=== PATIENT | female | born 1955 | race Caucasian/White ===

== ENCOUNTER 2019-07-05 18:40 | Emergency (ER) | payer OTHER ==
[~2019-07-05] VITALS: Ht 154.9 cm; Wt 113.6 kg
[~2019-07-05 18:40] MED LIST: DSS100 PO; OMEP-50
[2019-07-05] MEDS ORDERED: SIMV-43 PO (19:39)
[2019-07-05] MEDS ORDERED: LISI-622 PO (19:39)
[2019-07-05] MEDS ORDERED: METF-960 PO (19:39)
[2019-07-05] MEDS ORDERED: GABA-531 PO (19:39)
[2019-07-05 19:42] LABS: GLUCOSE,POINT OF CARE 141 MG/DL (70-110)
[2019-07-05 21:09] LABS: BASOPHILS % (AUTO) 0.6 % (0.0-2.0); EOSINOPHILS % (AUTO) 2.1 % (1.0-6.0); HEMATOCRIT 37.7 % (36-46); HEMOGLOBIN 12.1 g/dL (12.0-16.0); LYMPHOCYTES # (AUTO) 2.4 K/uL (1.0-4.8); LYMPHOCYTES % (AUTO) 21.9 % (22.0-44.0); MEAN CORPUSCULAR HEMOGLOBIN 28.4 pg (26.0-34.0); MEAN CORPUSCULAR HGB CONC 32.1 G/dL (31.0-37.0); MEAN CORPUSCULAR VOLUME 89 fL (80-100); NEUTROPHILS # (AUTO) 7.4 K/uL (1.8-7.7); NEUTROPHILS % (AUTO) 66.4 % (40.0-70.0); PLATELET COUNT (AUTO) 271 K/uL (150-450); RED BLOOD CELL COUNT(AUTO) 4.26 MIL/uL (4.00-5.20); RED CELL DISTRIBUTION WIDTH 15.8 % (11.5-14.5)
[2019-07-05] MEDS ORDERED: KETOROLAC TROMETHAMINE 10 MG TABLET PO ONE (21:15)
[2019-07-05 21:36] LABS: LACTIC ACID 0.9 mmol/L (0.4-2.0)
[2019-07-05 21:47] LABS: PROTHROMBIN TIME 9.8 SEC (9.4-11.6)
[2019-07-05 21:53] LABS: APPEARANCE,URINE CLOUDY (CLEAR); GLUCOSE, URINE (UA) NEGATIVE (NEGATIVE); KETONES,URINE NEGATIVE (NEGATIVE); LEUKOCYTE ESTERASE ,URINE SMALL (NEGATIVE); NITRATE,URINE POSITIVE (NEGATIVE); OCCULT BLOOD,URINE NEGATIVE (NEGATIVE); PROTEIN,URINE TRACE (NEGATIVE)
[2019-07-05 21:56] LABS: BILIRUBIN,URINE PRELIM. POSITIVE (NEGATIVE)
[2019-07-05 22:02] LABS: BACTERIA,URINE Many /HPF (None Seen)
[2019-07-05 22:03] LABS: RBC,URINE None Seen /HPF (0-2); SQUAMOUS EPITHELIAL CELL,UR Few /LPF (None Seen)
[2019-07-05 22:08] LABS: CALCIUM, TOTAL 9.1 mg/dL (8.8-10.5); CREATININE 1.45 mg/dL (0.60-1.30); POTASSIUM 3.7 mmol/L (3.5-5.1)
[2019-07-05] MEDS ORDERED: CefTRIAXone 1 GM/DEXTROSE 50 ML IV ONE (22:15)
[2019-07-05 22:32] LABS: ALBUMIN 3.3 g/dL (3.4-5.0); BILIRUBIN,TOTAL 0.2 mg/dL (0.1-1.0); TOTAL PROTEIN, SERUM 8.5 g/dL (6.4-8.2)
[2019-07-05 22:46] LABS: INFLUENZA TYPE A NEGATIVE FOR TYPE A (NEGATIVE); INFLUENZA TYPE B NEGATIVE FOR TYPE B (NEGATIVE)
[2019-07-06 00:17] VITALS: BP 137/84
== END 2019-07-06 00:27 | disposition home or self-care (01) ==
LOC: EMS 18:41
DX: N39.0 Urinary tract infection, site not specified (principal); K57.92 Diverticulitis of intestine, part unspecified, without perforation or abscess without bleeding; R05 Cough; E11.9 Type 2 diabetes mellitus without complications; E78.00 Pure hypercholesterolemia, unspecified; I10 Essential (primary) hypertension; Z90.49 Acquired absence of other specified parts of digestive tract; Z79.899 Other long term (current) drug therapy
CPT/HCPCS: 36415; 71045; 74176; 80053; 81001; 82550; 82962; 83605; 83690; 83880; 84484; 85025; 85610; 85730; 87040; 87077; 87086; 87804; 93005; 96374; 99285; J0696

== ENCOUNTER 2022-07-03 18:21 | Inpatient (IN) | payer MEDICARE, OTHER ==
[~2022-07-03] VITALS: Ht 170.2 cm; Wt 131.8 kg
[~2022-07-03 18:21] MED LIST changes: -DSS100 PO; +GABA-531 PO; +LISI5TAB21 PO; +METF-1211 PO; -OMEP-50; +SIMV-43 PO
[2022-07-03] MEDS ORDERED: CefTRIAXone 1 GM/DEXTROSE 50 ML IV ONE (18:45)
[2022-07-03] MEDS ORDERED: 0.9% SODIUM CHLORIDE 10 ML SYRINGE IVP PRN (18:45)
[2022-07-03] MEDS ORDERED: ACETAMINOPHEN 500 MG TABLET PO ONE (18:45)
[2022-07-03] MEDS ORDERED: SODIUM CHLORIDE 0.9% 2,400 ML IV ONE (18:45)
[2022-07-03 19:13] LABS: BASOPHILS % (AUTO) 0.3 % (0.0-2.0); EOSINOPHILS % (AUTO) 1.2 % (1.0-6.0); HEMATOCRIT 35.3 % (36-46); HEMOGLOBIN 11.2 g/dL (12.0-16.0); LYMPHOCYTES % (AUTO) 7.5 % (22.0-44.0); MEAN CORPUSCULAR HEMOGLOBIN 28.1 pg (26.0-34.0); MEAN CORPUSCULAR HGB CONC 31.6 G/dL (31.0-37.0); MEAN CORPUSCULAR VOLUME 89 fL (80-100); MONOCYTES # (AUTO) 0.6 K/uL (0.1-1.0); MONOCYTES % (AUTO) 4.5 % (2.0-9.0); NEUTROPHILS # (AUTO) 11.6 K/uL (1.8-7.7); NEUTROPHILS % (AUTO) 86.5 % (40.0-70.0); PLATELET COUNT (AUTO) 303 K/uL (150-450); RED BLOOD CELL COUNT(AUTO) 3.97 MIL/uL (4.00-5.20)
[2022-07-03 19:22] LABS: ANION GAP 4 mmol/L (8-16); CALCIUM, TOTAL 9.4 mg/dL (8.8-10.5); CARBON DIOXIDE 32 mmol/L (22-29); CHLORIDE 96 mmol/L (98-107); CREATININE 1.11 mg/dL (0.60-1.30); GLOMERULAR FILTR. RATE CALC 49 mL/min (>60); GLUCOSE,RANDOM 124 mg/dL (70-110); SODIUM SERUM 132 mmol/L (136-145); UREA NITROGEN, BLOOD 17 mg/dL (7-18)
[2022-07-03 19:28] LABS: ALANINE AMINOTRANSFERASE 27 U/L (12-78); ALBUMIN 3.1 g/dL (3.4-5.0); ALKALINE PHOSPHATASE 82 U/L (46-116); ASPARTATE AMINOTRANSFERASE 26 U/L (15-37); BILIRUBIN,TOTAL 0.4 mg/dL (0.1-1.0); TOTAL PROTEIN, SERUM 7.8 g/dL (6.4-8.2)
[2022-07-03 19:31] LABS: LACTIC ACID 2.2 mmol/L (0.4-2.0)
[2022-07-03 19:34] LABS: B-TYPE NATRIURETIC PEPTIDE 21 pg/mL (0-100)
[2022-07-03 19:35] LABS: COVID AG,FIA SOURCE NASAL SWAB
[2022-07-03 19:53] LABS: INFLUENZA TYPE A NEGATIVE FOR TYPE A (NEGATIVE); INFLUENZA TYPE B NEGATIVE FOR TYPE B (NEGATIVE)
[2022-07-03 22:05] LABS: APPEARANCE,URINE CLEAR (CLEAR); BILIRUBIN,URINE NEGATIVE (NEGATIVE); GLUCOSE, URINE (UA) NEGATIVE (NEGATIVE); KETONES,URINE NEGATIVE (NEGATIVE); LEUKOCYTE ESTERASE ,URINE TRACE (NEGATIVE); NITRATE,URINE NEGATIVE (NEGATIVE); OCCULT BLOOD,URINE NEGATIVE (NEGATIVE); PH,URINE 5.5 (5.0-8.0); PROTEIN,URINE NEGATIVE (NEGATIVE); SPECIFIC GRAVITIY, URINE 1.004 (1.003-1.030); UROBILINOGEN,URINE <=1.0 mg/dL (<=1.0)
[2022-07-03 22:17] LABS: BACTERIA,URINE None Seen /HPF (None Seen); RBC,URINE None Seen /HPF (0-2); SQUAMOUS EPITHELIAL CELL,UR Rare /LPF (None Seen); WBC,URINE 0-2 /HPF (0-5)
[2022-07-03] MEDS ORDERED: MAGNESIUM HYDROXIDE SUSPENSION 30 ML UDCUP PO PRN (22:30)
[2022-07-03] MEDS ORDERED: MORPHINE SULFATE 2 MG/ML SYRINGE IVP PRN (22:30)
[2022-07-03] MEDS ORDERED: ONDANSETRON HCL 4 MG/2 ML VIAL IVP PRN (22:30)
[2022-07-03] MEDS ORDERED: HYDROCODONE/ACETAMINOPHEN 5-325 MG TABLET PO PRN (22:30)
[2022-07-03] MEDS ORDERED: ACETAMINOPHEN 325 MG TABLET PO PRN (22:30)
[2022-07-03] MEDS ORDERED: *CLINICAL-LEVOFLOXACIN IVPB DOSING CLINICAL ONE (22:30)
[2022-07-03] MEDS ORDERED: BISACODYL 10 MG RECTAL RECTAL SUPPOSITORY PR PRN (22:30)
[2022-07-03] MEDS ORDERED: DEXTROSE 50%-WATER 25 GM/50 ML SYRINGE IVP PRN (22:45)
[2022-07-03] MEDS ORDERED: SODIUM CHLORIDE 0.9% 1,000 ML IV ONE (22:45)
[2022-07-03] MEDS ORDERED: INSULIN LISPRO 100 UNITS/ML SQ PRN (22:45)
[2022-07-04] MEDS: LEVOFLOXACIN 750 MG/D5% WATER 150 ML IV SCH (00:07)
[2022-07-04] MEDS: HEPARIN SODIUM,PORCINE 5,000 UNITS/ML VIAL SQ SCH ×4 (00:17→23:44)
[2022-07-04] MEDS: SIMVASTATIN 20 MG TABLET PO SCH (08:38)
[2022-07-04] MEDS: PANTOPRAZOLE SODIUM 40 MG DR TABLET PO SCH (08:38)
[2022-07-04] MEDS: DOCUSATE SODIUM 100 MG CAPSULE PO SCH ×2 (08:39→20:38)
[2022-07-04 12:37] LABS: ALANINE AMINOTRANSFERASE 23 U/L (12-78); ALBUMIN 2.6 g/dL (3.4-5.0); ALKALINE PHOSPHATASE 62 U/L (46-116); ANION GAP 3 mmol/L (8-16); ASPARTATE AMINOTRANSFERASE 22 U/L (15-37); BILIRUBIN,TOTAL 0.2 mg/dL (0.1-1.0); CALCIUM, TOTAL 8.9 mg/dL (8.8-10.5); CARBON DIOXIDE 33 mmol/L (22-29); CHLORIDE 103 mmol/L (98-107); CREATININE 0.83 mg/dL (0.60-1.30); GLUCOSE,RANDOM 110 mg/dL (70-110); SODIUM SERUM 139 mmol/L (136-145); TOTAL PROTEIN, SERUM 7.1 g/dL (6.4-8.2); UREA NITROGEN, BLOOD 12 mg/dL (7-18)
[2022-07-04 12:38] LABS: GLOMERULAR FILTR. RATE CALC > 60 mL/min (>60)
[2022-07-04 15:12] LABS: ANION GAP 5 mmol/L (8-16); CALCIUM, TOTAL 9.2 mg/dL (8.8-10.5); CARBON DIOXIDE 31 mmol/L (22-29); CHLORIDE 103 mmol/L (98-107); GLUCOSE,RANDOM 106 mg/dL (70-110); SODIUM SERUM 139 mmol/L (136-145); UREA NITROGEN, BLOOD 11 mg/dL (7-18)
[2022-07-04 15:14] LABS: GLOMERULAR FILTR. RATE CALC > 60 mL/min (>60)
[2022-07-04 16:13] VITALS: BP 117/67
[2022-07-04] MEDS ORDERED: NYSTATIN 15 GM POWDER BOTTLE TP PRN (17:00)
[2022-07-04 19:40] VITALS: BP 112/68
[2022-07-04 20:05] LABS: GLUCOMETER DEV NAME(LOC) 5S.1B; GLUCOSE,POINT OF CARE 95 MG/DL (70-110)
[2022-07-05 00:15] VITALS: BP 114/71
[2022-07-05] MEDS: ZOLPIDEM TARTRATE 5 MG TABLET PO PRN ×2 (00:22→22:59)
[2022-07-05] MEDS ORDERED: SODIUM CHLORIDE 0.9% 500 ML IV ONE (01:07)
[2022-07-05] MEDS: LEVOFLOXACIN 750 MG/D5% WATER 150 ML IV SCH ×2 (01:09→22:59)
[2022-07-05 04:30] VITALS: BP 103/62
[2022-07-05 07:52] VITALS: BP 119/73
[2022-07-05] MEDS: HEPARIN SODIUM,PORCINE 5,000 UNITS/ML VIAL SQ SCH ×3 (08:18→23:02)
[2022-07-05] MEDS: PANTOPRAZOLE SODIUM 40 MG DR TABLET PO SCH (08:18)
[2022-07-05] MEDS: SIMVASTATIN 20 MG TABLET PO SCH (08:18)
[2022-07-05] MEDS: DOCUSATE SODIUM 100 MG CAPSULE PO SCH ×2 (09:00→21:01)
[2022-07-05 11:40] VITALS: BP 131/67
[2022-07-05 15:33] VITALS: BP 104/61
[2022-07-05 15:44] LABS: ANION GAP 4 mmol/L (8-16); CALCIUM, TOTAL 9.6 mg/dL (8.8-10.5); CARBON DIOXIDE 32 mmol/L (22-29); CHLORIDE 100 mmol/L (98-107); CREATININE 0.92 mg/dL (0.60-1.30); GLUCOSE,RANDOM 117 mg/dL (70-110); SODIUM SERUM 136 mmol/L (136-145); UREA NITROGEN, BLOOD 10 mg/dL (7-18)
[2022-07-05 15:45] LABS: GLOMERULAR FILTR. RATE CALC > 60 mL/min (>60)
[2022-07-05 19:24] VITALS: BP 123/61
[2022-07-05] MEDS: GABAPENTIN 300 MG CAPSULE PO SCH (21:00)
[2022-07-06 00:20] VITALS: BP 130/76
[2022-07-06 05:09] VITALS: BP 142/76
[2022-07-06 07:05] LABS: CALCIUM, TOTAL 9.4 mg/dL (8.8-10.5); CREATININE 1.04 mg/dL (0.60-1.30)
[2022-07-06 07:40] VITALS: BP 115/66
[2022-07-06] MEDS: HEPARIN SODIUM,PORCINE 5,000 UNITS/ML VIAL SQ SCH (08:25)
[2022-07-06] MEDS: DOCUSATE SODIUM 100 MG CAPSULE PO SCH (08:25)
[2022-07-06] MEDS: GABAPENTIN 300 MG CAPSULE PO SCH (08:25)
[2022-07-06] MEDS: SIMVASTATIN 20 MG TABLET PO SCH (08:25)
[2022-07-06] MEDS: PANTOPRAZOLE SODIUM 40 MG DR TABLET PO SCH (08:25)
[2022-07-06 11:40] VITALS: BP 112/59
[2022-07-06] MEDS ORDERED: LEVOFLOXACIN 500 MG TABLET PO SCH (12:00)
[2022-07-06 12:01] LABS: BASOPHILS % (AUTO) 0.9 % (0.0-2.0); EOSINOPHILS % (AUTO) 3.1 % (1.0-6.0); HEMATOCRIT 33.9 % (36-46); HEMOGLOBIN 10.7 g/dL (12.0-16.0); LYMPHOCYTES # (AUTO) 1.9 K/uL (1.0-4.8); LYMPHOCYTES % (AUTO) 27.7 % (22.0-44.0); MEAN CORPUSCULAR HEMOGLOBIN 28.6 pg (26.0-34.0); MEAN CORPUSCULAR HGB CONC 31.5 G/dL (31.0-37.0); MEAN CORPUSCULAR VOLUME 91 fL (80-100); MONOCYTES # (AUTO) 0.7 K/uL (0.1-1.0); MONOCYTES % (AUTO) 10.2 % (2.0-9.0); NEUTROPHILS # (AUTO) 3.9 K/uL (1.8-7.7); NEUTROPHILS % (AUTO) 58.1 % (40.0-70.0); PLATELET COUNT (AUTO) 283 K/uL (150-450); RED BLOOD CELL COUNT(AUTO) 3.74 MIL/uL (4.00-5.20); RED CELL DISTRIBUTION WIDTH 17.1 % (11.5-14.5)
[2022-07-06 12:47] LABS: GLUCOMETER DEV NAME(LOC) 5S.1B; GLUCOSE,POINT OF CARE 145 MG/DL (70-110)
[2022-07-06 12:47] LABS: GLUCOMETER DEV NAME(LOC) 5S.1B; GLUCOSE,POINT OF CARE 114 MG/DL (70-110)
[2022-07-06 12:47] LABS: GLUCOMETER DEV NAME(LOC) 5S.1B; GLUCOSE,POINT OF CARE 114 MG/DL (70-110)
[2022-07-06 12:47] LABS: GLUCOMETER DEV NAME(LOC) 5S.1B; GLUCOSE,POINT OF CARE 114 MG/DL (70-110)
[2022-07-06 13:21] LABS: GLUCOMETER DEV NAME(LOC) 5N.1C; GLUCOSE,POINT OF CARE 131 MG/DL (70-110)
[2022-07-06 13:22] LABS: GLUCOMETER DEV NAME(LOC) 5N.1C; GLUCOSE,POINT OF CARE 110 MG/DL (70-110)
== END 2022-07-06 16:35 | DRG 871 ==
LOC: EMS 18:28 → 5S 07-04 13:21
PROVIDERS: ADMIT Internal Medicine; ATTEND Internal Medicine
DX: A41.9 Sepsis, unspecified organism (principal); R53.2 Functional quadriplegia; E44.0 Moderate protein-calorie malnutrition; Z68.42 Body mass index [BMI] 45.0-49.9, adult; E66.01 Morbid (severe) obesity due to excess calories; K21.9 Gastro-esophageal reflux disease without esophagitis; I10 Essential (primary) hypertension; E11.9 Type 2 diabetes mellitus without complications; E78.5 Hyperlipidemia, unspecified; E78.00 Pure hypercholesterolemia, unspecified; I44.7 Left bundle-branch block, unspecified; Z20.822 Contact with and (suspected) exposure to COVID-19; G89.29 Other chronic pain; K42.9 Umbilical hernia without obstruction or gangrene; Z74.01 Bed confinement status; Z88.8 Allergy status to other drugs, medicaments and biological substances; Z79.899 Other long term (current) drug therapy; Z87.442 Personal history of urinary calculi; Z90.49 Acquired absence of other specified parts of digestive tract
CPT/HCPCS: 71045; 74176; 80048; 80053; 81001; 82962; 83605; 83880; 84484; 85025; 85610; 87040; 87081; 87804; 93005; 93306; 99291; J1644; J1956; J7040; 36415-L1; 36415-TC